=== PATIENT | female | born 1985 | race Caucasian/White ===

== ENCOUNTER 2017-02-13 18:27 | Emergency (ER) | payer OTHER ==
[~2017-02-13] VITALS: Wt 93.0 kg
[~2017-02-13 18:27] MED LIST: HYDR-3498 PO; IBUP-1542 PO
[2017-02-13 18:31] VITALS: Wt 93.0 kg
[2017-02-13] MEDS ORDERED: SOD CHLORIDE 0.9% 1,000 ML IV STA (20:12)
[2017-02-13] MEDS ORDERED: ONDANSETRON 4 MG INJ IV STA (20:12)
[2017-02-13] MEDS ORDERED: morphine 4 MG/ML VIAL IV STA (20:12)
[2017-02-13 21:04] LABS: WHITE BLOOD COUNT 11.4 10^3/ul (4.8-10.8)
[2017-02-13 21:05] LABS: BASOPHIL # 0.1 10^3/ul (0.0-0.1); BASOPHILS % 0.5 % (0.0-2.0); EOSINOPHILS # 0.4 10^3/ul (0.0-0.5); EOSINOPHILS % 3.2 % (0.0-7.0); HEMATOCRIT 42.8 % (37.0-47.0); HEMOGLOBIN 14.7 g/dl (12.0-16.0); LYMPHOCYTES # 1.8 10^3/ul (0.8-2.9); LYMPHOCYTES % 15.5 % (15.0-51.0); MEAN CORPUSCULAR HEMOGLOBIN 28.4 pg (29.0-33.0); MEAN CORPUSCULAR HGB CONC 34.3 g/dl (32.0-37.0); MEAN CORPUSCULAR VOLUME 82.8 fl (82.0-101.0); MEAN PLATELET VOLUME 9.8 fl (7.4-10.4); MONOCYTE # 0.5 10^3/ul (0.3-0.9); MONOCYTES % 4.6 % (0.0-11.0); NEUTROPHIL # 8.7 10^3/ul (1.6-7.5); NEUTROPHILS % 75.9 % (39.0-77.0); PLATELET COUNT 280 10^3/UL (140-415); RED BLOOD COUNT 5.17 10^6/ul (4.20-5.40); RED CELL DISTRIBUTION WIDTH 13.6 % (11.5-14.5)
[2017-02-13 21:08] LABS: INR 0.98; PARTIAL THROMBOPLASTIN TIME 27.9 Sec (25.0-35.0)
[2017-02-13 21:09] LABS: ADD UMIC YES; UR AMORPHOUS CRYSTAL MANY /HPF (NONE SEEN); UR ASCORBIC ACID NEGATIVE (NEGATIVE); UR BACTERIA FEW /HPF (NONE SEEN); UR BILIRUBIN (Dip) NEGATIVE (NEGATIVE); UR BLOOD (Dip) NEGATIVE (NEGATIVE); UR CLARITY CLOUDY (CLEAR); UR COLOR YELLOW (YELLOW); UR GLUCOSE (Dip) NEGATIVE (NEGATIVE); UR KETONES (Dip) NEGATIVE (NEGATIVE); UR LEUKOCYTE ESTERASE (Dip) NEGATIVE Leu/ul (NEGATIVE); UR NITRITE (Dip) NEGATIVE (NEGATIVE); UR RBC 2 /HPF (0-5); UR TOTAL PROTEIN (Dip) NEGATIVE (NEGATIVE); UR UROBILINOGEN (Dip) NEGATIVE (NEGATIVE)
[2017-02-13 21:11] LABS: ALBUMIN 4.7 g/dl (3.3-4.9); ALBUMIN/GLOBULIN RATIO 1.2; BILIRUBIN,INDIRECT 0.3 mg/dl (0-1.1); BILIRUBIN,TOTAL 0.3 mg/dl (0.2-1.3); CALCIUM 9.5 mg/dl (8.4-10.2); CREATININE 0.86 mg/dl (0.44-1.00); POTASSIUM 3.9 mmol/L (3.5-5.1); TOTAL PROTEIN 8.6 g/dl (6.1-8.1)
--- NOTE | 2017-02-13 21:11 | RADRPT ---
PROCEDURE: US Abdomen Right Upper Quadrant. CLINICAL INDICATION: Abdominal pain TECHNIQUE: Multiple real-time longitudinal and transverse images were acquired of the patient's [facility] upper quadrant abdomen utilizing a curved array transducer. COMPARISON: 10/26/2015 FINDINGS: Liver: The liver remains enlarged with the sagittal diameter right lobe measuring approximate 20 cm. The liver is diffusely echogenic but no focal lesion is identified. There is antegrade flow of th e main portal vein. Gallbladder: Appears unremarkable and no stones are identified. There is no pericholecystic fluid. Bile ducts: There is no significant intra or extrahepatic bile duct dilatation. No choledocholiths a re seen within the visualized portions. The common bile duct measures 3.8 mm in cross diameter. Pancreas: The visualized head and body of the pancreas appear normal. Right adrenal : No mass is evident. Right kidney: Appears somewhat small. The right kidney measures 9.9 cm in length. No mass, pathologi johnny calcification, or hydronephrosis is evident. Peritoneum: There is no free intraperitoneal fluid IMPRESSION: 1. Hepatomegaly with diffusely increased echotexture to the liver suspicious for diffuse fatty infi ltration. No focal lesion is evident and there is antegrade flow of the main portal vein. 2. No evidence of cholelithiasis or bile duct dilatation. The visualized pancreas appears unremark able. 3. The right kidney is slightly small but otherwise unremarkable without hydronephrosis. 4. No free fluid is identified. Physician Flor Date Time Electronically viewed and signed by Physician Flor on 02/13/2017 21:11 /
[2017-02-13] MEDS ORDERED: IOHEXOL 300MG/ML 150 ML BTL ONE (21:39)
[2017-02-13] MEDS ORDERED: SOD CHLORIDE 0.9% 100 ML ONE (21:39)
--- NOTE | 2017-02-13 22:08 | RADRPT ---
PROCEDURE: CT abdomen and pelvis with intravenous contrast. CLINICAL INDICATION: Pain. TECHNIQUE: CT of the abdomen/pelvis was performed utilizing axial images with reconstructions in s agittal and coronal planes after uneventful administration of 100 cc Omnipaque 300. The administered radiation dose is CTDI 17 mGy, DLP 945 mGy-cm. COMPARISON: No pertinent prior examinations were submitted for comparison. FINDINGS: Visualized Chest: The visualized lung bases are clear. Abdomen: The spleen, pancreas, gallbladder,and adrenal glands are unremarkable. The liver is diffusely dec reased in attenuation, compatible with hepatic steatosis. The kidneys are without hydronephrosis. No definite urinary calculi are seen. There is no evidence of bowel obstruction. The appendix is normal. No intra-abdominal free air is seen. Numerous diverticula are noted along the descending and sigmoid colon. There is focal thicke yael of the proximal to mid sigmoid colon with moderate surrounding inflammatory changes. No region al fluid collections are seen. There is no intra-abdominal free air. There is no evidence of bowel obstruction. There is no evidence of intra-abdominal adenopathy or free fluid. Pelvis: There is no evidence of pelvic adenopathy. The uterus and ovaries are without enlargement. The uri nary bladder is unremarkable. There is a small amount of pelvic free fluid. Osseous structures: Unremarkable. IMPRESSION: Colonic diverticulosis with diverticulitis of the sigmoid colon. Hepatic steatosis. RPTAT: HIKT .Denny Smith MD, Date Time Electronically viewed and signed by .Denny Smith MD, on 02/13/2017 22:08 .T/
[2017-02-13] MEDS ORDERED: CIPROFLOXACIN 400MG/D5W 200 ML IVPB ONE (23:00)
[2017-02-13] MEDS ORDERED: metroNIDAZOLE 500 MG/NS (PMX) 100 ML IVPB ONE (23:00)
[2017-02-13] MEDS ORDERED: HYDR-906 PO (23:48)
[2017-02-13] MEDS ORDERED: CIPR500T4 PO (23:48)
--- NOTE | 2017-02-13 23:48 | ERD ---
ER Documentation Chief Complaint Date/Time DATE: 02/13/17 Chief Complaint Abdominal pain HPI The patient is a 31-year-old female who presents to the Emergency Department with complaint of abdominal pain, nausea and vomiting. The patient reports that last night she ate a meal of tacos. Several hours later, she began to experience lower abdominal pain, left greater than right, that has since spread diffusely throughout the abdomen. She describes the pain as cramping in nature, constant, rated 9/10 in intensity. She admits to associated nausea, and several episodes of nonbilious, nonbloody emesis. Otherwise, denies diarrhea. Denies black or bloody stools. Denies fevers, sweats, chills, chest pain, palpitations , shortness of breath. Denies dysuria, hematuria, flank pain, vaginal bleeding or new vaginal discharge. The patient notes that she had experienced similar symptoms several years ago, and believes that her symptoms were secondary to a "gallbladder attack" or "problems with the intestines". She has not yet tried any medication for pain relief. No other complaints at this time. ROS All systems reviewed and are negative except as per history of present illness. Medications Home Meds Active Scripts Ibuprofen* (Motrin*) 600 Mg Tab, 600 MG PO Q6, #30 TAB Prov:OSBALDO SOLARES PA-C 02/13/17 Metronidazole* (Flagyl*) 500 Mg Tablet, 500 MG PO TID for 10 Days, TAB Prov:OSBALDO SOLARES PA-C 02/13/17 Ciprofloxacin Hcl* (Ciprofloxacin Hcl*) 500 Mg Tablet, 500 MG PO BID for 10 Days , TAB Prov:OSBALDO SOLARES PA-C 02/13/17 Hydrocodone/Acetaminophen ([place] 5-325 Tablet) 1 Each Tablet, 1 EACH PO Q6, #12 TAB Prov:OSBALDO SOLARES PA-C 02/13/17 Hydrocodone Bit-Acetaminophen* ([place]*) 5-325 Mg Tab, 1 TAB PO QHS Y for PAIN, # 7 TAB 0 Refills Prov:RONIT MAYO PA-C 10/26/15 Ibuprofen* (Motrin*) 600 Mg Tab, 600 MG PO Q8, #30 TAB 0 Refills Prov:RONIT MAYO PA-C 10/26/15 Allergies Allergies: Coded Allergies: No Known Allergy (Unverified , 10/02/15) PMhx/Soc History of Surgery: Yes (APPENDECTOMY) Anesthesia Reaction: No Hx Neurological Disorder: No Hx Respiratory Disorders: No Hx Cardiac Disorders: No Hx Psychiatric Problems: Yes (ASTHMA) Hx Miscellaneous Medical Probl: Yes (OVARIAN CYST) Hx Alcohol Use: Yes (OCCASSIONAL) Hx Substance Use: No Hx Tobacco Use: No Smoking Status: Never smoker Physical Exam Vitals Vital Signs Date Time Temp Pulse Resp B/P Pulse Ox O2 Delivery O2 Flow Rate FiO2 02/14/17 00:46 88 20 115/82 02/13/17 18:31 99.6 114 20 163/114 98 Physical Exam GENERAL: Well-developed, well-nourished, in mild distress secondary to pain. HEENT: Head is normocephalic, atraumatic. No scleral pallor or icterus. Pupils equal, round and reactive to light. Extraocular movements intact. Conjunctiva pink. Moist mucous membranes. NECK: Supple. No masses, no tenderness, no lymphadenopathy. Trachea midline. Full range of motion. RESPIRATORY: Lungs are clear to auscultation bilaterally. Equal breath sounds. Normal expiratory effort. CARDIOVASCULAR: Tachycardic. Regular rhythm. S1 and S2 normal. GASTROINTESTINAL: Abdomen is soft and nondistended. Tenderness to palpation over the left lower quadrant and epigastric region of the abdomen. Mild diffuse tenderness throughout. Positive bowel sounds. No tenderness at McBurney's point. FLANK: No CVA tenderness. BACK: No midline tenderness. No paraspinal tenderness. Spine curve normal. No deformities. EXTREMITIES: No clubbing, cyanosis, or edema. Normal skin perfusion. Moving all extremities. Muscle tone is normal. NEUROLOGIC: The patient is alert, awake, and oriented x 3. No focal neurologic deficits. INTEGUMENT: Skin is clean, dry and intact. No rashes, lesions or petechiae present. PSYCHIATRIC: Appropriate; Cooperative. Result Diagram: 02/13/17203402/13/172034 Results 24 hrs Laboratory Tests Test 02/13/17 20:35 02/13/17 22:45 White Blood Count 11.410^3/ul Red Blood Count 5.1710^6/ul Hemoglobin 14.7g/dl Hematocrit 42.8% Mean Corpuscular Volume 82.8fl Mean Corpuscular Hemoglobin 28.4pg Mean Corpuscular Hemoglobin Concent 34.3g/dl Red Cell Distribution Width 13.6% Platelet Count 40924^3/UL Mean Platelet Volume 9.8fl Neutrophils % 75.9% Lymphocytes % 15.5% Monocytes % 4.6% Eosinophils % 3.2% Basophils % 0.5% Nucleated Red Blood Cells % 0.0/100WBC Neutrophils # 8.710^3/ul Lymphocytes # 1.810^3/ul Monocytes # 0.510^3/ul Eosinophils # 0.410^3/ul Basophils # 0.110^3/ul Nucleated Red Blood Cells # 0.010^3/ul Prothrombin Time 13.0Sec Prothrombin Time Ratio 1.0 INR International Normalized Ratio 0.98 Activated Partial Thromboplast Time 27.9Sec Urine Color YELLOW Urine Clarity CLOUDY Urine pH 8.0 Urine Specific [place] 1.020 Urine Ketones NEGATIVEmg/dL Urine Nitrite NEGATIVEmg/dL Urine Bilirubin NEGATIVEmg/dL Urine Urobilinogen NEGATIVEmg/dL Urine Leukocyte Esterase NEGATIVELeu/ul Urine Microscopic RBC 2/HPF Urine Microscopic WBC 13/HPF Urine Amorphous Crystals MANY/HPF Urine Bacteria FEW/HPF Urine Hemoglobin NEGATIVEmg/dL Urine Glucose NEGATIVEmg/dL Urine Total Protein NEGATIVEmg/dl Sodium Level 143mmol/L Potassium Level 3.9mmol/L Chloride Level 99mmol/L Carbon Dioxide Level 28mmol/L Anion Gap 20 Blood Urea Nitrogen 11mg/dl Creatinine 0.86mg/dl Glucose Level 101mg/dl Lactic Acid Level 1.1mmol/L 0.7mmol/L Calcium Level 9.5mg/dl Total Bilirubin 0.3mg/dl Direct Bilirubin 0.00mg/dl Indirect Bilirubin 0.3mg/dl Aspartate Amino Transf (AST/SGOT) 21IU/L Alanine Aminotransferase (ALT/SGPT) 50IU/L Alkaline Phosphatase 94IU/L Total Protein 8.6g/dl Albumin 4.7g/dl Globulin 3.90g/dl Albumin/Globulin Ratio 1.20 Lipase 85U/L Serum HCG, Qualitative NEGATIVE Current Medications Medications (Trade) Dose Ordered Sig/Wally Route PRN Reason Start Time Stop Time Status Last Admin Dose Admin Sodium Chloride (NS) 1,000 ml @ 1,000 mls/hr Q1H STAT IV 02/13/17 20:12 02/13/17 21:11 DC 02/13/17 20:35 Morphine Sulfate (morphine) 4 mg ONCE STAT IV 02/13/17 20:12 02/13/17 20:16 DC 02/13/17 20:35 Ondansetron HCl (Zofran Inj) 4 mg ONCE STAT IV 02/13/17 20:12 02/13/17 20:16 DC 02/13/17 20:35 IV Flush 10 ml 10 ml STK-MED ONCE .ROUTE 02/13/17 21:39 02/13/17 21:40 DC 02/13/17 21:50 Sodium Chloride (NS) 100 ml @ ud STK-MED ONCE .ROUTE 02/13/17 21:39 02/13/17 21:40 DC 02/13/17 21:50 Iohexol 150 ml 150 ml STK-MED ONCE .ROUTE 02/13/17 21:39 02/13/17 21:40 DC 02/13/17 21:50 Metronidazole 100 ml @ 100 mls/hr ONCE ONCE IVPB 02/13/17 23:00 02/13/17 23:59 DC 02/13/17 23:13 Ciprofloxacin/ Dextrose (Cipro Ivpb) 200 ml @ 200 mls/hr ONCE ONCE IVPB 02/13/17 23:00 02/13/17 23:59 DC 02/13/17 23:13 Morphine Sulfate (morphine) 4 mg ONCE STAT IV 02/14/17 00:18 02/14/17 00:19 DC 02/14/17 00:22 Procedures/MDM DIAGNOSTIC TESTS AND INTERPRETATION: PROCEDURE: US Abdomen Right Upper Quadrant. CLINICAL INDICATION: Abdominal pain TECHNIQUE: Multiple real-time longitudinal and transverse images were acquired of the patient's right upper quadrant abdomen utilizing a curved array transducer. COMPARISON: 10/26/2015 FINDINGS: Liver: The liver remains enlarged with the sagittal diameter right lobe measuring approximate 20 cm. The liver is diffusely echogenic but no focal lesion is identified. There is antegrade flow of the main portal vein. Gallbladder: Appears unremarkable and no stones are identified. There is no pericholecystic fluid. Bile ducts: There is no significant intra or extrahepatic bile duct dilatation. No choledocholiths are seen within the visualized portions. The common bile duct measures 3.8 mm in cross diameter. Pancreas: The visualized head and body of the pancreas appear normal. Right adrenal : No mass is evident. Right kidney: Appears somewhat small. The right kidney measures 9.9 cm in length. No mass, pathological calcification, or hydronephrosis is evident. Peritoneum: There is no free intraperitoneal fluid IMPRESSION: 1. Hepatomegaly with diffusely increased echotexture to the liver suspicious for diffuse fatty infiltration. No focal lesion is evident and there is antegrade flow of the main portal vein. 2. No evidence of cholelithiasis or bile duct dilatation. The visualized pancreas appears unremarkable. 3. The right kidney is slightly small but otherwise unremarkable without hydronephrosis. 4. No free fluid is identified. Physician Flor Date Time Electronically viewed and signed by Physician Flor on 02/13/2017 21:11 PROCEDURE: CT abdomen and pelvis with intravenous contrast. CLINICAL INDICATION: Pain. TECHNIQUE: CT of the abdomen/pelvis was performed utilizing axial images with reconstructions in sagittal and coronal planes after uneventful administration of 100 cc Omnipaque 300. The administered radiation dose is CTDI 17 mGy, DLP 945 mGy-cm. COMPARISON: No pertinent prior examinations were submitted for comparison. FINDINGS: Visualized Chest: The visualized lung bases are clear. Abdomen: The spleen, pancreas, gallbladder,and adrenal glands are unremarkable. The liver is diffusely decreased in attenuation, compatible with hepatic steatosis. The kidneys are without hydronephrosis. No definite urinary calculi are seen. There is no evidence of bowel obstruction. The appendix is normal. No intra- abdominal free air is seen. Numerous diverticula are noted along the descending and sigmoid colon. There is focal thickening of the proximal to mid sigmoid colon with moderate surrounding inflammatory changes. No regional fluid collections are seen. There is no intra-abdominal free air. There is no evidence of bowel obstruction. There is no evidence of intra-abdominal adenopathy or free fluid. Pelvis: There is no evidence of pelvic adenopathy. The uterus and ovaries are without enlargement. The urinary bladder is unremarkable. There is a small amount of pelvic free fluid. Osseous structures: Unremarkable. IMPRESSION: Colonic diverticulosis with diverticulitis of the sigmoid colon. Hepatic steatosis. .Denny Smith MD, Date Time Electronically viewed and signed by .Denny Smith MD, on 02/13/2017 22:08 EMERGENCY DEPARTMENT COURSE: The patient was stable throughout the ED course. I kept the patient informed of all laboratory and diagnostic imaging results throughout her stay. IV access established by nursing staff. Fluids, Morphine, Zofran administered. Laboratory tests, ultrasound imaging and CT abdomen and pelvis with IV contrast performed. CT imaging with findings of diverticulitis, and therefore a dose of Ciprofloxacin and Flagyl administered IV in the ED. On reevaluation, the patient reports no new complaints and decreased pain. MEDICAL DECISION MAKING: This is a 31-year-old female presenting to the Emergency Department with complaint of abdominal pain, nausea and vomiting. On physical examination, she had tenderness to palpation over the epigastrium and left lower quadrant of the abdomen, with mild tenderness throughout. The differential diagnosis includes, but is not limited to, appendicitis, cholecystitis, abdominal aortic aneurysm, Crohn's disease, diverticulitis, ectopic , endometriosis, herpes zoster , nephrolithiasis, intra-abdominal abscess, PID, ovarian torsion, ovarian cyst, mesenteric lymphadenitis, Meckel's diverticulum, ischemic colitis, mesenteric ischemia, inguinal hernia, tubo-ovarian abscess, gastroenteritis, cervicitis, cystitis. Laboratory analysis with WBC 11.4. Otherwise, no severe anemia, no significant electrolyte abnormalities. BUN and creatinine within appropriate reference range, with no prerenal azotemia or acute kidney injury. No transaminitis, lipase is normal. Urinalysis with no nitrites, no urine leukocyte esterase, doubt urinary tract infection. Ultrasound imaging performed with no evidence of cholelithiasis or cholecystitis. CT abdomen and pelvis revealed numerous diverticula along the descending and sigmoid colon, with focal thickening of the proximal to mid sigmoid colon with moderate surrounding inflammatory changes, consistent with acute diverticulitis. Otherwise, no fluid collections, no abscess formation, no free air or perforation. After rest and administration of fluids and medications, the patient reports no new complaints. Upon my review and interpretation of the patient's presentation, clinical data, and overall ER course, I believe the patient's symptoms are most consistent with acute diverticulitis. At this time the patient is in stable condition and therefore can be discharged home with prescriptions for [place], Ibuprofen, Flagyl , Ciprofloxacin and given strict return precautions for signs of deteriorating or worsening condition. The patient is advised to follow up with her primary care provider within 1-2 days for re-evaluation and further management, or return to the ER sooner for any new or worsening symptoms. I shared my medical decision making, plan and results with the patient at length and in great detail and she verbally understands and agrees with the plan for further observation and care as an outpatient. At the time of discharge, all questions were answered. The patient was discharged home in fair condition. They were instructed to return to the emergency department at any time if there was any worsening of their condition. The patient stated they would follow up with their PCP in the next 24-48 hours to initiate a suitable medication regimen under the care of their PCP as well as to allow their PCP to monitor any drug reactions. The patient was discharged home with prescriptions after they gave informed consent to the new medication. They were also fully informed on the adverse effects and adverse drug interactions in order to provide adequate safeguards to prevent possible adverse reactions to medications. Departure Diagnosis: Primary Impression: Acute diverticulitis Condition: Stable Patient Instructions: Diverticulitis Additional Instructions: Call your primary care doctor TOMORROW for an appointment during the next 1-2 days.See the doctor sooner or return here if your condition worsens before your appointment time. OSBALDO SOLARES PA-C Feb 13, 2017 23:48
[2017-02-13] MEDS ORDERED: METR500T PO (23:49)
[2017-02-13] MEDS ORDERED: IBUP-1542 PO (23:49)
[2017-02-14] MEDS ORDERED: morphine 4 MG/ML VIAL IV STA (00:18)
[2017-02-14 00:46] VITALS: BP 115/82; PULSE 88; RESP 20
== END 2017-02-14 00:48 | disposition home or self-care (01) ==
LOC: FTE 18:27
DX: K57.92 Diverticulitis of intestine, part unspecified, without perforation or abscess without bleeding (principal); J45.909 Unspecified asthma, uncomplicated
CPT/HCPCS: 36415; 74177; 76705; 80053; 81001; 83605; 83690; 84703; 85025; 85610; 85730; 87040; 87086; 96374; 96375; 96376; J0744; J2270; J2405; J7030; Q9967; Z7502; Z7610

== ENCOUNTER 2017-08-07 11:56 | Emergency (ER) | END 2017-08-07 13:02 | disposition left against medical advice (07) ==